=== PATIENT | female | born 1950 | race Caucasian/White ===

== ENCOUNTER 2020-08-23 04:58 | Emergency (ER) | payer OTHER, SELFPAY ==
[2020-08-23] VITALS (48 sets, daily range): BP systolic 117–157; BP diastolic 66–93; PULSE 78–88; RESP 15–32; TEMP 36.3; O2SAT 85–100
--- NOTE | 2020-08-23 05:01 | W.ED.GENAD ---
Discharge Plan Disposition Patient Disposition: HOME Condition: Improving Discharge Details Clinical Impression: Acute CHF Primary Care Provider: Rosita Birch ED Provider: Chelsey Tariq Home Meds and New Rx's Prescriptions: Continued furosemide [Lasix] 40 mg Tablet 40 mg PO DAILY RF: 0 bupropion HCl [Wellbutrin SR] 150 mg Tablet Sustained-Release 12 Hr 150 mg PO BID RF: 0 potassium chloride 8 mEq Capsule, Extended Release RF: 0 polyethylene glycol 3350 [Miralax] 17 gram Powder In Packet 17 g PO DAILY RF: 0 ondansetron HCl [Zofran] 4 mg Tablet 4 mg PO PRN PRNRF: 0 metoprolol succinate 100 mg Tablet Extended Release 24 Hr 100 mg PO DAILY RF: 0 amlodipine [Norvasc] 2.5 mg Tablet 2.5 mg PO DAILY RF: 0 acetaminophen 500 mg Tablet 500 mg PO PRN PRNRF: 0 ropinirole [Requip] 0.25 mg Tablet 0.25 mg PO BID RF: 0 pantoprazole 40 mg Tablet,Delayed Release (Dr/Ec) 40 mg PO BID RF: 0 ropinirole 0.5 mg Tablet 0.5 mg PO DAILY RF: 0 folic acid 1 mg Tablet 1 mg PO DAILY RF: 0 cyanocobalamin (vitamin B-12) Tablet,Chewable PO RF: 0 Discharge Instructions Instructions: Heart Failure (ED) Additional Instructions: Take 1-1/2 tabs (total of 60mg) of your Lasix for the next 3 days until you follow-up with your primary care doctor on Sunday. Take all of your other regular medications as prescribed. Follow-up with your scheduled appointment with your primary care doctor on Sunday for reevaluation of your shortness of breath and for management of your medications. Return immediately to the emergency department if you develop any worsening or new concerning symptoms. Discharge Data Discharge Physician: Chelsey Tariq Medical Decision Making <Raman Gant MD - Last Filed: 08/23/20 07:42> I reviewed patient's records from [facility]. I have requested records from discharge summary at [facility] recently. Patient's EKG is paced. She reports no recent bleeding. She has had episodes of chest tightness and shortness of breath like this. Laboratory studies and portable chest x-ray ordered. Patient labs show stable hemoglobin compared to discharge hemoglobin a few days ago. Kidney function stable as well. Troponin is negative. Lytes are fine. BNP is markedly elevated. No baseline but patient's lasix cut in half at discharge. CXR with small right pleural effusion. Suspect fluid overload/CHF as cause of SOB. Will give IV Lasix and diuresis here. If feels better should be able to discharge. D-dimer is highly positive and with history of DVT of anticoagulants despite having filter will get CTA. GFR is greater than 30. Medical Records Medical records reviewed: Yes I reviewed the patient's medical records. Lab Data Lab results reviewed: Yes I reviewed the patient's lab results. ECG Data Attestation: I personally reviewed and interpreted this ECG (s) as follows: Prior ECG tracings: not available for review Interpretation: Paced <Chelsey Tariq DO - Last Filed: 08/23/20 18:16> 0800 --please see Dr. Gant's note for initial presentation, exam and plan. Case endorsed to follow-up on CT chest and response to diuresis. Patient assessed by me at bedside. Oxygen saturation 100% on room air. Patient is speaking in full sentences with no signs of distress. Lungs clear bilaterally. No lower extremity edema. She has already been able to urinate 200 cc. Nursing at bedside placing IV for CT chest. 1030 --nursing, myself as well as anesthesia x2 unable to obtain IV. She refused to nurse and anesthesia any further IV placement and stating she wants to leave. I discussed with patient at bedside and she states she has changed her mind and will stay. Discussed with anesthesia who will attempt IV placement again. 1145 --no success with IV placement by anesthesia 5 times. Discussed with radiology and will use the 22-gauge IV in the left hand and will lower the contrast dose. Patient remains hemodynamically stable with oxygen saturation 97% on room air. She appears comfortable. 1300 --CT chest negative for PE. Oxygen saturation 98% on room air. Heart rate 80s. She states she feels good to go home. Triage note and Dr. Gant's note stated that patient complained of chest tightness. She states this was only last night and denies this at present. We will obtain repeat troponin and EKG. 1400 --repeat troponin negative. Repeat EKG unchanged. Advised to take 1 and 1/2 tabs for a total of 60 mg of Lasix in the next 3 days until she follows up with her primary care doctor on Sunday. Usual and customary return precautions given prior to discharge. Medical Records Medical records reviewed: Yes I reviewed the patient's medical records. Imaging Data Radiologic Study: Radiologist's impression: XR Chest Exam date and time: 08/23/2020 5:33 AM Age: 69 years old Clinical indication: Shortness of breath; Prior surgery; Surgery date: 6+ months; Surgery type: Pacemaker, defibulator TECHNIQUE: Imaging protocol: XR of the chest. Views: 1 view. COMPARISON: No relevant prior studies available. FINDINGS: Tubes, catheters and devices: There is a cardiac pacemaker/AICD implanted in the left anterior chest wall with leads projecting over the expected location of the right atrium and ventricle. Lungs: No pulmonary consolidation is seen. Pleural spaces: The right costophrenic angle is obscured. It is uncertain if this represents an artifactual appearance created by overlying soft tissue or a small right pleural effusion. No definite pleural effusion is seen on the left. No pneumothorax is demonstrated. Heart/Mediastinum: The heart is prominently enlarged. The mediastinal contours otherwise appear normal. Diaphragm: There is elevation of the right hemidiaphragm. Bones/joints: The visualized bony structures appear grossly intact, as seen. IMPRESSION: 1. Possible small right pleural effusion versus artifact. 2. Prominent cardiomegaly. Cardiac pacemaker/AICD device in situ. CTA Chest With Contrast Exam date and time: 08/23/2020 7:44 AM Age: 69 years old Clinical indication: Other: SOB, elevated d-dimer, HX of dvt of anticoags; Prior surgery; Surgery date: 6+ months TECHNIQUE: Imaging protocol: Computed tomographic angiography of the chest with contrast. 3D rendering (Not supervised by radiologist): MIP and/or 3D reconstructed images were created by the technologist. Radiation optimization: All CT scans at this facility use at least one of these dose optimization techniques: automated exposure control; mA and/or kV adjustment per patient size (includes targeted exams where dose is matched to clinical indication); or iterative reconstruction. Contrast material: 100; Contrast volume: 100 ml; Contrast route: INTRAVENOUS (IV); COMPARISON: CR XR PORTABLE CHEST AP 08/23/2020 6:11 AM FINDINGS: Pulmonary arteries: No pulmonary embolism identified. Aorta: Unremarkable. No aortic aneurysm. No aortic dissection. Veins: An inferior vena cava filter lies in appropriate position. Lungs: 5 mm nodule left lower lobe series 8, image 407. Pleural spaces: Small bilateral pleural effusions. Heart: Unremarkable. No cardiomegaly. No pericardial effusion. Lymph nodes: Prominent mediastinal nodes noted. Bones/joints: Unremarkable. No acute fracture. Soft tissues: Unremarkable. IMPRESSION: 1. No pulmonary embolism identified. 2. Small bilateral pleural effusions. 3. 5 mm nodule left lower lobe series 8, image 407. For patients at low risk (minimal or absent history of smoking and of other known risk factors), no routine follow-up is indicated. For patients at high risk (history of smoking or of other known risk factors), consider optional CT Chest at 12 months. (Reference: [place]) Lab Data Lab results reviewed: Yes I reviewed the patient's lab results. Labs: Laboratory Tests Range/Units 08/23/20 08/23/20 08/23/20 06:35 06:35 06:35 WBC (4.4-10.8) 10^3/uL 6.20 RBC (3.93-5.22) 10^6/uL 3.65 L Hgb (11.2-15.7) g/dL 9.5 L Hct (36.0-46.0) % 30.8 L MCV (80-95) fL 84.4 MCH (27.0-33.0) pg 26.0 L MCHC (32.0-36.0) % 30.8 L RDW (11.7-14.6) % 16.6 H Plt Count (130-400) 10^3/uL 222 MPV (8.0-11.0) fL 8.7 Immature Gran % 0.3 Neutrophils % 68.9 Lymphocytes % 16.1 Monocytes % 11.8 Eosinophils % 2.1 Basophils % 0.8 Nucleated RBC % % 0 Absolute Neutrophils (1.2-6.7) 10^3/uL 4.27 Absolute Lymphocytes (1.2-3.4) 10^3/uL 1.00 L Absolute Monocytes (0.1-0.8) 10^3/uL 0.73 Absolute Eosinophils (0.0-0.7) 10^3/uL 0.13 Absolute Basophils (0.0-0.2) 10^3/uL 0.05 D-Dimer (<500) ng/mlFEU 1806 H Sodium (136-145) mmol/L 139 Potassium (3.5-5.1) mmol/L 4.5 Chloride (98-107) mmol/L 105 Carbon Dioxide (21.0-32.0) mmol/L 25.5 Anion Gap (3-11) mmol/L 8.5 BUN (7-18) mg/dL 22 H Creatinine (0.55-1.02) mg/dL 1.5 H Estimated GFR/1.73 m2 (mL/min/1.73m2) 34.53 Glucose (74-106) mg/dL 93 Calcium (8.5-10.1) mg/dL 9.1 Magnesium (1.8-2.4) mg/dL 2.6 H Total Bilirubin (0.2-1.0) mg/dL 0.9 AST (15-37) U/L 25 ALT (14-59) U/L 20 Alkaline Phosphatase (46-116) U/L 100 Troponin I (<0.06) ng/mL < 0.05 NT-Pro-B Natriuret Pep (<300) pg/mL 24972 H Total Protein (6.4-8.2) g/dL 7.6 Albumin (3.4-5.0) g/dL 3.4 Range/Units 08/23/20 08/23/20 08:31 13:22 WBC (4.4-10.8) 10^3/uL RBC (3.93-5.22) 10^6/uL Hgb (11.2-15.7) g/dL Hct (36.0-46.0) % MCV (80-95) fL MCH (27.0-33.0) pg MCHC (32.0-36.0) % RDW (11.7-14.6) % Plt Count (130-400) 10^3/uL MPV (8.0-11.0) fL Immature Gran % Neutrophils % Lymphocytes % Monocytes % Eosinophils % Basophils % Nucleated RBC % % Absolute Neutrophils (1.2-6.7) 10^3/uL Absolute Lymphocytes (1.2-3.4) 10^3/uL Absolute Monocytes (0.1-0.8) 10^3/uL Absolute Eosinophils (0.0-0.7) 10^3/uL Absolute Basophils (0.0-0.2) 10^3/uL D-Dimer (<500) ng/mlFEU Sodium (136-145) mmol/L Potassium (3.5-5.1) mmol/L Chloride (98-107) mmol/L Carbon Dioxide (21.0-32.0) mmol/L Anion Gap (3-11) mmol/L BUN (7-18) mg/dL Creatinine (0.55-1.02) mg/dL Estimated GFR/1.73 m2 (mL/min/1.73m2) Glucose (74-106) mg/dL Calcium (8.5-10.1) mg/dL Magnesium (1.8-2.4) mg/dL Total Bilirubin (0.2-1.0) mg/dL AST (15-37) U/L ALT (14-59) U/L Alkaline Phosphatase (46-116) U/L Troponin I (<0.06) ng/mL Cancelled < 0.05 NT-Pro-B Natriuret Pep (<300) pg/mL Total Protein (6.4-8.2) g/dL Albumin (3.4-5.0) g/dL ECG Data Attestation: I personally reviewed and interpreted this ECG (s) as follows: Interpretation: #1 --Rate of 80, ventricular paced. No STEMI #2 --Rate of 80, ventricular paced. No STEMI. HPI <Raman Gant MD - Last Filed: 08/23/20 07:42> General Mode of arrival: wheelchair. Date/Time Provider Initiated Documentation: 08/23/20 05:00. Limitations to Documentation: no limitations. Information obtained by: patient, RN notes reviewed and old records reviewed. HPI Narrative: Patient presents to ED with complaint of chest tightness and shortness of breath. Patient reports getting out of [facility] just a few days ago after admission for GI bleed and CHF. Patient visiting her niece this weekend. Unable to sleep all night because of chest tightness and shortness of breath. She has a previous history of alcohol abuse but denies drinking currently. She was taken off anticoagulation after this most recent GI bleed. She has not noticed any further hematemesis or hematochezia. 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 She has chronic abdominal pain which is not significantly different. She denies fever or cough. She does have history of DVT and has IVC filter in place. Most of her care is obtained at [facility]. Related Data Home Medications Medication Instructions Recorded Confirmed acetaminophen 500 mg PO PRN PRN 08/23/20 08/23/20 amlodipine [Norvasc] 2.5 mg PO DAILY 08/23/20 08/23/20 bupropion HCl [Wellbutrin SR] 150 mg PO BID 08/23/20 08/23/20 cyanocobalamin (vitamin B-12) tab PO 08/23/20 folic acid 1 mg PO DAILY 08/23/20 08/23/20 furosemide [Lasix] 40 mg PO DAILY 08/23/20 08/23/20 metoprolol succinate 100 mg PO DAILY 08/23/20 08/23/20 ondansetron HCl [Zofran] 4 mg PO PRN PRN 08/23/20 08/23/20 pantoprazole 40 mg PO BID 08/23/20 08/23/20 polyethylene glycol 3350 [Miralax] 17 g PO DAILY 08/23/20 08/23/20 potassium chloride meq 08/23/20 ropinirole 0.5 mg PO DAILY 08/23/20 08/23/20 ropinirole [Requip] 0.25 mg PO BID 08/23/20 08/23/20 Allergies Allergy/AdvReac Type Severity Reaction Status Date / Time acetaminophen AdvReac Unverified 08/23/20 05:24 [From Tylenol-Codeine] codeine AdvReac Vomiting Unverified 08/23/20 05:25 [From Tylenol-Codeine] Review of Systems <Raman Gant MD - Last Filed: 08/23/20 07:42> Narrative: 01/06 Review of Systems completed and is negative except as stated above in HPI (Systems reviewed: Const, Eyes, ENT, Resp, CV, GI, , MSK, Skin, Neuro) PFSH <Raman Gant MD - Last Filed: 08/23/20 07:42> Medical History (Updated 08/23/20 @ 13:12 by Chelsey Tariq DO) Anxiety Atrial fibrillation Bradyarrhythmia CHF (congestive heart failure) DVT (deep venous thrombosis) GI bleed HTN (hypertension) Pacemaker Presence of IVC filter Pulmonary hypertension Short gut syndrome Surgical History (Updated 08/23/20 @ 05:50 by Raman Gant MD) H/O abdominal surgery multiple surgeries S/P appendectomy S/P cholecystectomy S/P hysterectomy Social History Smoking/Tobacco Use Status: Former Tobacco Use Smoking risk assessment performed?: Yes Alcohol Intake: current Alcohol Intake frequency: holidays/special occasions only Drug use: Never Substance use type: does not use Do you feel safe at home: Yes Do you feel safe in your relationship?: Yes Exam <Raman Gant MD - Last Filed: 08/23/20 07:42> Narrative Exam Narrative: Const: WDWN female in NAD. HEENT: NC/AT. Normal facial exam. Eyes: Normal conjunctiva and sclera. Neck: Supple. Trachea midline. Lungs: Normal respiratory effort. Lungs are clear. Cor: RRR with murmur. Good radial pulses. GI: Soft. NT/ND. No guarding or rebound. Neuro: A+O x 3. Normal speech, mentation, gait. Cranial nerves II - XII grossly intact. No gross motor or sensory deficit. Ext: No C/C/E. No calf tenderness. Skin: Warm and dry without rash. Sign Out <Raman Gant MD - Last Filed: 08/23/20 07:42> Sign Out Data: Sign Out Comment: pending CTA and response to diuresis Last updated by Raman Gant MD at 08/23/20 07:44
--- NOTE | 2020-08-23 05:15 | RT.EKG_ITS ---
APPROVED REPORT Exam: Resting ECG Reason for Exam: CP Patient Location: E HR:80 bpm ECG Measurements Heart Rate 80 AXIS FL 188 P 0 QRSd 150 QRS 179 QT 442 T 66 QTc 511 Conclusion Ventricular-paced rhythm I have reviewed and interpreted ECG and agree with software generated interpretation.
--- NOTE | 2020-08-23 05:30 | DI.RAD_ITS ---
Exam(s) XR PORTABLE CHEST AP EXAM: XR PORTABLE CHEST AP CLINICAL HISTORY: SOB TECHNIQUE: 2D digital imaging was performed. COMPARISON: No exams were available for comparison FINDINGS: MEDIASTINUM: Normal. HEART: Cardiomegaly. Pacemaker leads are in good position. PULMONARY VASCULATURE: Normal. LUNGS: Clear. PLEURAL SPACE: There is apparent blunting of the right costophrenic angle. This may be artifact from overlying soft tissue versus small pleural effusion. No pneumothorax. There is elevation of the ri ght hemidiaphragm. BONE:Within normal limits for the patient's age. OTHER FINDINGS:Normal. IMPRESSION: Artifact versus small right pleural effusion. DATA REPOSITORY: RADIATION DOSE DELIVERED:
--- NOTE | 2020-08-23 06:28 | DI.VRAD_ITS ---
PROCEDURE INFORMATION: Exam: XR Chest Exam date and time: 08/23/2020 5:33 AM Age: 69 years old Clinical indication: Shortness of breath; Prior surgery; Surgery date: 6+ months; Surgery type: Pacemaker, defibulator TECHNIQUE: Imaging protocol: XR of the chest. Views: 1 view. COMPARISON: No relevant prior studies available. FINDINGS: Tubes, catheters and devices: There is a cardiac pacemaker/AICD implanted in the left anterior chest wall with leads projecting over the expected location of the right atrium and ventricle. Lungs: No pulmonary consolidation is seen. Pleural spaces: The right costophrenic angle is obscured. It is uncertain if this represents an artifactual appearance created by overlying soft tissue or a small right pleural effusion. No definite pleural effusion is seen on the left. No pneumothorax is demonstrated. Heart/Mediastinum: The heart is prominently enlarged. The mediastinal contours otherwise appear normal. Diaphragm: There is elevation of the right hemidiaphragm. Bones/joints: The visualized bony structures appear grossly intact, as seen. IMPRESSION: 1. Possible small right pleural effusion versus artifact. 2. Prominent cardiomegaly. Cardiac pacemaker/AICD device in situ. Dictated and Authenticated by: Filiberto Fernando MD. Ordering:EAMON Camargo MD
[2020-08-23 06:46] LABS: Abs Immature Grans 0.02 10^3/uL (0.0-0.06); Absolute Basophil Count 0.05 10^3/uL (0.0-0.2); Absolute Eosinophil Count 0.13 10^3/uL (0.0-0.7); Absolute Monocyte Count 0.73 10^3/uL (0.1-0.8); Absolute Neutrophil Count 4.27 10^3/uL (1.2-6.7); Basophils % 0.8; Eosinophils % 2.1; HCT 30.8 % (36.0-46.0); HGB 9.5 g/dL (11.2-15.7); Immature Grans % 0.3; Lymphocytes % 16.1; MCHC 30.8 % (32.0-36.0); MCV 84.4 fL (80-95); MPV 8.7 fL (8.0-11.0); Monocytes % 11.8; Neutrophils % 68.9; Nucleated RBC 0 %; Platelet Count 222 10^3/uL (130-400); RBC 3.65 10^6/uL (3.93-5.22); RDW 16.6 % (11.7-14.6); RDW-SD 51.5 fL
[2020-08-23 07:06] LABS: ALT 20 U/L (14-59); AST 25 U/L (15-37); Albumin 3.4 g/dL (3.4-5.0); Alkaline Phosphatase 100 U/L (46-116); Anion Gap 8.5 mmol/L (3-11); BUN 22 mg/dL (7-18); Bilirubin, Total 0.9 mg/dL (0.2-1.0); CO2 25.5 mmol/L (21.0-32.0); CREATININE 1.5 mg/dL (0.55-1.02); Calcium 9.1 mg/dL (8.5-10.1); Chloride 105 mmol/L (98-107); Estimated GFR 34.53 (mL/min/1.73m2); Glucose 93 mg/dL (74-106); Magnesium 2.6 mg/dL (1.8-2.4); NT-proBNP 10486 pg/mL (<300); Potassium 4.5 mmol/L (3.5-5.1); Sodium 139 mmol/L (136-145); Total Protein 7.6 g/dL (6.4-8.2)
[2020-08-23 07:08] LABS: Troponin I < 0.05 ng/mL (<0.06)
[2020-08-23] MEDS: Furosemide 40 MG/4 ML VIAL IVP (07:28)
--- NOTE | 2020-08-23 07:30 | DI.CT_ITS ---
Exam(s) CT CHEST PE CTA EXAM: CT CHEST PE CTA CLINICAL HISTORY: SOB, elevated d-dimer, hx of DVT of anticoags. TECHNIQUE: Imaging Protocol: Axial CT angiography was performed with multi-slice acquisition and mu lti-planar and/or 3D reconstructions. CONTRAST MATERIAL: Intravenous: Omnipaque 350 Contrast volume:100 mL COMPARISON: CR,XR XR PORTABLE CHEST AP from 08/23/2020 FINDINGS: Tracheobronchial tree: Patent where visualized. Pulmonary parenchyma: No consolidation or dominant measurable mass. No architectural distortion. Ther e is a 5 mm pulmonary nodule in the left lower lobe medially. (Series 8, image 407). Pulmonary Arteries: No evidence of filling defect to suggest pulmonary emboli. Mediastinum and Radha: No dominant adenopathy or fluid collection. Visualized thyroid gland: Unremarkable. Pleura: Small bilateral pleural effusions. No pneumothorax. Heart: The heart is not dilated. No coronary artery calcifications are seen. No pericardial effusion. Pacemaker leads are in good position. Aorta: Thoracic aorta non-dilated. No dissection or aneurysm. Atherosclerosis. Upper abdomen: There is an IVC filter. Prior gastric bypass surgery. The gallbladder appears absen t. Soft tissues: Unremarkable. Bones: Within normal limits. IMPRESSION: 1. No evidence of pulmonary embolism, thoracic aortic dissection or aneurysm. 2. Small bilateral pleural effusions. 3. 5 mm left lower lobe pulmonary nodule. For low risk patients, no routine follow-up is recommended . For high risk patients (history of smoking or other known risk fractures), consider CT scan of the chest at 12 months. Incidental Findings RADIATION DOSE DELIVERED: 578.06mGy.cm Total DLP DATA REPOSITORY: All CT scans at this facility are submitted to the National Radiology Data Registry (NRDR) Dose Index Registry (DIR) with the [employer] [place] [employer] (A[employer]). RADIATION OPTIMIZATION: All CT scans at this facility use at least one of these dose optimization te chniques: automated exposure control; mA and/or kV adjustment per patient size (includes targeted exa ms where dose is matched to clinical indication); or iterative reconstruction.
[2020-08-23 07:33] LABS: D-Dimer 1806 ng/mlFEU (<500)
[2020-08-23] MEDS: rOPINIRole 0.5 MG TAB 0.25 MG PO (10:50)
[2020-08-23] MEDS: Omnipaque 350 MG/ML 100 ML BTL IV (12:05)
[2020-08-23] MEDS: Normal Saline - Diluent 50 ML VIAL IV (12:06)
[2020-08-23] MEDS: Normal Saline Flush 10 ML SYR IVP (12:07)
--- NOTE | 2020-08-23 12:47 | DI.VRAD_ITS ---
PROCEDURE INFORMATION: Exam: CTA Chest With Contrast Exam date and time: 08/23/2020 7:44 AM Age: 69 years old Clinical indication: Other: SOB, elevated d-dimer, HX of dvt of anticoags; Prior surgery; Surgery date: 6+ months TECHNIQUE: Imaging protocol: Computed tomographic angiography of the chest with contrast. 3D rendering (Not supervised by radiologist): MIP and/or 3D reconstructed images were created by the technologist. Radiation optimization: All CT scans at this facility use at least one of these dose optimization techniques: automated exposure control; mA and/or kV adjustment per patient size (includes targeted exams where dose is matched to clinical indication); or iterative reconstruction. Contrast material: 100; Contrast volume: 100 ml; Contrast route: INTRAVENOUS (IV); COMPARISON: CR XR PORTABLE CHEST AP 08/23/2020 6:11 AM FINDINGS: Pulmonary arteries: No pulmonary embolism identified. Aorta: Unremarkable. No aortic aneurysm. No aortic dissection. Veins: An inferior vena cava filter lies in appropriate position. Lungs: 5 mm nodule left lower lobe series 8, image 407. Pleural spaces: Small bilateral pleural effusions. Heart: Unremarkable. No cardiomegaly. No pericardial effusion. Lymph nodes: Prominent mediastinal nodes noted. Bones/joints: Unremarkable. No acute fracture. Soft tissues: Unremarkable. IMPRESSION: 1. No pulmonary embolism identified. 2. Small bilateral pleural effusions. 3. 5 mm nodule left lower lobe series 8, image 407. For patients at low risk (minimal or absent history of smoking and of other known risk factors), no routine follow-up is indicated. For patients at high risk (history of smoking or of other known risk factors), consider optional CT Chest at 12 months. (Reference: [place]) REFERENCES: [place] Salas, et al. Guidelines for Management of Incidental Pulmonary Nodules Detected on CT Images: From the Fleischner Society 2017. Radiology. 2017;284(1):228-243. Dictated and Authenticated by: Kishor Lindquist MD. Ordering:EAMON Camargo MD
[2020-08-23] MEDS: amLODIPine 2.5 MG TAB PO (12:57)
[2020-08-23] MEDS: Pantoprazole 40 MG TABCR PO (12:57)
[2020-08-23] MEDS: Metoprolol CR 100 MG TABCR PO (12:57)
[2020-08-23] MEDS: buPROPion-CR 150 MG TABCR PO (12:58)
--- NOTE | 2020-08-23 13:00 | RT.EKG_ITS ---
APPROVED REPORT Exam: Resting ECG Reason for Exam: chest tightness, sob Patient Location: E HR:80 bpm ECG Measurements Heart Rate 80 AXIS SD 170 P 0 QRSd 151 QRS 185 QT 434 T 65 QTc 501 Conclusion Ventricular-paced rhythm I have reviewed and interpreted ECG and agree with software generated interpretation.
[2020-08-23 13:46] LABS: Troponin I < 0.05 ng/mL (<0.06)
== END 2020-08-23 14:03 | disposition home or self-care (01) ==
PROVIDERS: Emergency Medicine; Emergency Provider Physician Assistant; PCP Family Medicine
DX: I11.0 Hypertensive heart disease with heart failure (principal); I50.9 Heart failure, unspecified; R79.89 Other specified abnormal findings of blood chemistry; R79.1 Abnormal coagulation profile; Z86.718 Personal history of other venous thrombosis and embolism; Z95.828 Presence of other vascular implants and grafts
CPT/HCPCS: 36415; 71275; 80053; 93005; 94640; 96374; 99285; 71045; 83735; 83880; 84484; 85025; 85379; 93010; J1940; J3490